=== PATIENT | male | born 1975 | race American Indian/Alaskan Native ===

== ENCOUNTER 2022-05-04 15:03 | Emergency (ER) | payer OTHER ==
[2022-05-04 16:09] VITALS: BP 132/86
[2022-05-04] MEDS ORDERED: BUTALB/ACETAMINOPHEN/CAFFEINE TAB PO ONE (19:45)
[2022-05-04] MEDS ORDERED: KETOROLAC 30 MG/1 ML INJ IM ONE (19:45)
--- NOTE | 2022-05-04 19:50 | Emergency Department Report ---
ED Headache HPI - General Chief Complaint: Headache Stated Complaint: HEADACHES Source: patient, RN notes reviewed Exam Limitations: no limitations - History of Present Illness Initial Comments: Patient is a 46-year-old male with past medical history of hypertension who presents to the ED with complaint of persistent generalized headache for the last 3 months intermittently but which has worsened in the last 3 days. Patient states that prior to arrival in the ED the headache was constant and persistent and severe with blurry vision and so he decided come to the ED for evaluation. Patient states that he has since taken ibuprofen 800 mg with mild relief. Patient denies nausea and vomiting, traumatic injury, dizziness, syncope, chest pain or shortness of breath, fever, chills, neck pain, change in speech, dysphagia or dysphonia, nasal and sinus congestion or back pain. Timing/Duration: constant, waxing and waning, other (> 3 months) Quality: severe, pressure, sharp Head Injury Location: global Recent Head Trauma: frequent headaches, chronic headaches Modifying Factors: improves with: medication Associated Symptoms: denies symptoms. denies: confusion, fatigue, facial pain, fever/chills, flushing, loss of consciousness, nausea/vomiting, nasal congestion, nasal drainage, numbness in legs/feet, seizures, stiff neck, vision changes, weakness Allergies/Adverse Reactions: Allergies No Known Allergies Allergy (Unverified 09/19/15 16:33) Home Medications: Ambulatory Orders Ondansetron [Zofran Odt] 4 mg PO TID #6 tab.rapdis 09/19/15 Butalb/Acetaminophen/Caffeine [Fioricet 50-300-40 mg CAP] 1 - 2 cap PO Q8HR PRN #20 cap 05/04/22 Ketorolac [Toradol] 10 mg PO Q8H PRN #20 tab 05/04/22 Promethazine [Phenergan] 25 mg PO Q8HR PRN #30 tab 05/04/22 ED Review of Systems ROS: Stated complaint: HEADACHES Other details as noted in HPI Constitutional: denies: chills, fever Eyes: denies: eye pain, eye discharge, vision change ENT: denies: ear pain, throat pain, dental pain, hearing loss, congestion Respiratory: denies: cough, shortness of breath, wheezing Cardiovascular: denies: chest pain, palpitations Endocrine: no symptoms reported Gastrointestinal: denies: abdominal pain, nausea, vomiting, diarrhea Genitourinary: denies: urgency, dysuria Musculoskeletal: denies: back pain, joint swelling, arthralgia Skin: denies: rash, lesions Neurological: headache. denies: weakness, paresthesias Psychiatric: denies: anxiety, depression Hematological/Lymphatic: denies: easy bleeding, easy bruising ED Past Medical Hx - Past Medical History Previous Medical History?: No Hx Hypertension: Yes - Surgical History Past Surgical History?: Yes Additional Surgical History: Surgery on nose - Social History Smoking Status: Current Some Day Smoker Substance Use Type: None - Medications Home Medications: Home Medications Medication Instructions Recorded Confirmed Last Taken Type Ondansetron [Zofran Odt] 4 mg PO TID #6 tab.rapdis 09/19/15 Unknown Rx Butalb/Acetaminophen/Caffeine 1 - 2 cap PO Q8HR PRN #20 cap 05/04/22 Unknown Rx [Fioricet 50-300-40 mg CAP] Ketorolac [Toradol] 10 mg PO Q8H PRN #20 tab 05/04/22 Unknown Rx Promethazine [Phenergan] 25 mg PO Q8HR PRN #30 tab 05/04/22 Unknown Rx ED Physical Exam - General Limitations: No Limitations General appearance: alert, in no apparent distress - Head Head exam: Present: atraumatic, normocephalic, normal inspection - Eye Eye exam: Present: normal appearance, PERRL, EOMI Pupils: Present: normal accommodation - ENT ENT exam: Present: normal exam, normal orophraynx, mucous membranes moist, TM's normal bilaterally, normal external ear exam - Neck Neck exam: Present: normal inspection, full ROM - Respiratory Respiratory exam: Present: normal lung sounds bilaterally. Absent: respiratory distress, wheezes, rales, rhonchi, chest wall tenderness, accessory muscle use, decreased breath sounds, prolonged expiratory - Cardiovascular Cardiovascular Exam: Present: regular rate, normal rhythm, normal heart sounds. Absent: systolic murmur, diastolic murmur, rubs, gallop - GI/Abdominal GI/Abdominal exam: Present: soft, normal bowel sounds. Absent: distended, tenderness, guarding, rebound, hyperactive bowel sounds, hypoactive bowel sounds, bruit - Extremities Exam Extremities exam: Present: normal inspection, full ROM, normal capillary refill - Back Exam Back exam: Present: normal inspection, full ROM. Absent: tenderness, CVA tenderness (R), CVA tenderness (L), muscle spasm, paraspinal tenderness, ginna tebral tenderness - Neurological Exam Neurological exam: Present: alert, oriented X3, CN II-XII intact, normal gait, reflexes normal - Psychiatric Psychiatric exam: Present: normal affect, normal mood - Skin Skin exam: Present: warm, dry, intact, normal color. Absent: rash ED Course Vital Signs 05/04/22 16:04 Temperature 98.6 F Pulse Rate 60 Respiratory 20 Rate Blood Pressure 132/86 [Right] O2 Sat by Pulse 97 Oximetry ED Medical Decision Making - Medical Decision Making This is a 46-year-old male with past medical history of hypertension who presents to the ED with complaint of persistent generalized headache for the last 3 months intermittently but which has worsened in the last 3 days. Patient states that prior to arrival in the ED the headache was constant and persistent and severe with blurry vision and so he decided come to the ED for evaluation. Patient states that he has since taken ibuprofen 800 mg with mild relief. In the ED, patient is alert and oriented x3 and is not in any distress. Patient is hemodynamically stable. Patient was treated for pain in the ED. On reevaluation, patient's pain is well controlled medication. Patient will discharge home on medications and advised to follow-up with his primary care physician in 5 to 7 days for reevaluation. Patient was advised return to the ED immediately if symptoms get worse. - Differential Diagnosis Tension headache; migraine headache; cluster headache; anxiety Critical care attestation.: If time is entered above; I have spent that time in minutes in the direct care of this critically ill patient, excluding procedure time. ED Disposition Clinical Impression: Chronic mixed headache syndrome Disposition: 01 HOME / SELF CARE / HOMELESS Is pt being admited?: No Does the pt Need Aspirin: No Condition: Stable Instructions: Migraine Headache, [id number], Tension Headache, Adult, [id number], General Headache Without Cause, [id number] Additional Instructions: Take medication with food, drink plenty of fluids and follow-up with your primary care physician in 7 to 10 days for reevaluation. Return to the ED immediately if symptoms get worse. Prescriptions: Butalb/Acetaminophen/Caffeine [Fioricet 50-300-40 mg CAP] 1 - 2 cap PO Q8HR PRN #20 cap PRN Reason: acute headache Promethazine [Phenergan] 25 mg PO Q8HR PRN #30 tab PRN Reason: Nausea Ketorolac [Toradol] 10 mg PO Q8H PRN #20 tab PRN Reason: Pain , Severe (7-10) Referrals: RICHY SUAREZ MD [Primary Care Provider] - 3-5 Days Forms: Work/School Release Form(ED) Time of Disposition: 19:52 Print Language: CITIZEN OF [place]
== END 2022-05-04 20:15 | disposition home or self-care (01) ==
LOC: ED 15:03
DX: G44.89 Other headache syndrome (principal); I10 Essential (primary) hypertension; Z98.890 Other specified postprocedural states; F17.290 Nicotine dependence, other tobacco product, uncomplicated
CPT/HCPCS: 96372; 99282; J1885